=== PATIENT | male | born 2000 | race Caucasian/White ===

== ENCOUNTER 2024-11-14 15:53 | Emergency (ER) | payer SELFPAY ==
[2024-11-14] MEDS: Lidocaine 4% Patch TOP ONE (17:23)
== END 2024-11-14 17:55 | disposition home or self-care (01) ==
LOC: MW.ED 15:53
DX: R07.89 Other chest pain (principal); F17.200 Nicotine dependence, unspecified, uncomplicated
CPT/HCPCS: 71100; 99284; A9270; 99282